=== PATIENT | female | born 1995 | race Caucasian/White ===

== ENCOUNTER 2017-03-23 19:47 | Emergency (ER) | payer MEDICAID, OTHER ==
[~2017-03-23] VITALS: Ht 157.5 cm; Wt 53.0 kg
[2017-03-23 19:59] VITALS: Ht 157.5 cm; Wt 53.0 kg
[2017-03-23] MEDS ORDERED: IBUPROFEN 600 MG TAB PO ONE (21:30)
--- NOTE | 2017-03-23 21:41 | ERD ---
ER Documentation Chief Complaint Date/Time DATE: 03/23/17 TIME: 21:35 Chief Complaint headache x 2 days HPI 21-year-old female presents to emergency department for complaints of headache for 2 days. Patient is complaining of headache, throbbing pain, 6/10 scale, patient denies any nausea or vomiting. Patient denies any head injury. Patient denies any blurry vision. Patient denies any sick contacts. Patient denies any neck pain. Patient denies any loss of consciousness. ROS All systems reviewed and are negative except as per history of present illness. Medications Home Meds Reported Medications [none] Unknown Strength No Conflict Check 03/23/17 Allergies Allergies: Coded Allergies: No Known Allergy (Unverified , 03/23/17) PMhx/Soc Medical and Surgical Hx: pt denies Medical Hx, pt denies Surgical Hx Hx Alcohol Use: No Hx Substance Use: No Hx Tobacco Use: No Smoking Status: Never smoker FmHx Family History: No coronary disease, No diabetes, No other Physical Exam Vitals Vital Signs Date Time Temp Pulse Resp B/P Pulse Ox O2 Delivery O2 Flow Rate FiO2 03/23/17 19:59 99.9 104 20 127/80 98 Physical Exam GENERAL: The patient is well developed and appropriate for usual state of health, in no apparent distress. CHEST: Clear to auscultation bilaterally. There are no rales, wheezes or rhonchi. HEART: Regular rate and rhythm. No murmurs, clicks, rubs or gallops. No S3 or S4. ABDOMEN: Soft, nontender and nondistended. Good bowel sounds. No rebound or guarding. No gross peritonitis. No gross organomegaly or masses. No Perrin sign or McBurney point tenderness. BACK: No midline or flank tenderness. EXTREMITIES: Equal pulses bilaterally. There is no peripheral clubbing, cyanosis or edema. No focal swelling or erythema. Full range of motion. Grossly neurovascularly intact. NEURO: Alert and oriented. Cranial nerves 2-12 intact. Motor strength in all 4 extremities with 5/5 strength. Sensation grossly intact. Normal speech and gait. Negative Romberg sign. Negative pronator drift. SKIN: There is no apparent rash or petechia. The skin is warm and dry. HEMATOLOGIC AND LYMPHATIC: There is no evidence of excessive bruising or lymphedema. No gross cervical, axillary, or inguinal lymphadenopathy. Results 24 hrs Current Medications Medications (Trade) Dose Ordered Sig/Mitchell Route PRN Reason Start Time Stop Time Status Last Admin Dose Admin Ibuprofen (Motrin) 600 mg ONCE ONCE PO 03/23/17 21:30 03/23/17 21:31 DC 03/23/17 21:27 Patient was given medication for pain here in emergency department, after treatment, patient verbalized feeling much better. Patient's pain is improved. Procedures/MDM Medical Decision Making: Patient's headache most likely consistent with tension headache. It can be viral. There is low suspicion for neurological emergencies at this time since patients neurologic exam is normal. Patient did not have any altered level consciousness, vomiting, changes in balance or memory after incident. CT scan of the brain and indicated at this time. Patient was given for ibuprofen for pain. Patient is advised to follow-up with primary care doctor in 2-3 days for reevaluation of symptoms. Patient is advised to return to emergency department for any worsening symptoms. Dispostion: Home. Stable Departure Diagnosis: Primary Impression: Headache Headache type: unspecified Headache chronicity pattern: acute headache Intractability: not intractable Qualified Code: R51 - Acute nonintractable headache, unspecified headache type Condition: Stable Patient Instructions: Self-Care for Headaches Additional Instructions: Patient was given for ibuprofen for pain. Patient is advised to follow-up with primary care doctor in 2-3 days for reevaluation of symptoms. Patient is advised to return to emergency department for any worsening symptoms. FREDO WARREN NP March 23, 2017 21:41
[2017-03-23] MEDS ORDERED: IBUP-1542 PO (21:42)
== END 2017-03-23 21:46 | disposition home or self-care (01) ==
LOC: FTE 19:47
DX: R51 Headache (principal)
CPT/HCPCS: Z7502; Z7610; 99283